=== PATIENT | male | born 1975 | race Hispanic/Latino ===

== ENCOUNTER 2024-11-02 02:54 | Emergency (ER) | payer SELFPAY ==
[~2024-11-02] VITALS: Ht 180.3 cm; Wt 110.7 kg
[2024-11-02 02:56] VITALS: TEMP 98.3
--- NOTE | 2024-11-02 03:02 | EKG ---
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
[2024-11-02 03:27] LABS: IMMATURE GRANULOCYTE ABSOLUTE 0.05 K/uL (0-1); NUCLEATED RED BLOOD CELLS 0.0 % (0.0-0.19); PLATELET COUNT (AUTO) 208 K/uL (130-400); RED BLOOD CELL COUNT(AUTO) 4.67 MIL/uL (4.50-6.20); RED CELL DISTRIBUTION WIDTH 12.8 % (11.0-15.5); WHITE BLOOD COUNT (AUTO) 7.8 K/uL (4.8-10.8)
--- NOTE | 2024-11-02 03:32 | ERN ---
ED Note History of Present Illness Stated Complaint: CHEST PRESSURE ONSET 129 Chief Complaint: Chest Pain Time Seen by MD: 03:01 Dictation: This is a 49-year-old male who presented to the emergency room with complaints of chest pressure that started around 1:30 a.m.. Patient stated that he did not feel well and he took Xanax and he also took nitro sublingual. He stated that the pressure is mostly precordial and mid central chest area without any radiation. He does admit to gastroesophageal reflux. And he also admits to tenderness associated with it as the pain continued he came into the ER for further evaluation. EMS gave 325 mg of aspirin prior to arrival. He denied any nausea vomitings abdominal pain he did admit to smoking marijuana and relaxing. Patient normally takes acid reflux pill daily. He forgot tonight the pain does not have any relation to breathing. Temperature 98.3 pulse 89 respirations 15 blood pressure 117/75 with a pulse oximetry of 98% on room air Chronic comorbidities include diabetes mellitus, hypertension, tobacco abuse and marijuana use disorder. Allergies: Coded Allergies: No Known Drug Allergies (Unverified Allergy, Unknown, 11/02/24) Past Medical History Past Medical History: Diabetes-Type II, Hypertension Surgical History: None Family History: Negative Social History: Smokers, Drugs RN Note Reviewed/Agreed w/PFSH: Yes Review of System Dictation Constitutional: Negative for fever,chills, and weight loss Eyes: Negative for injury, pain,redness, and discharge ENT: Negative for injury,pain or swelling Cardiovascular: Positive for chest pressure, denies palpitations, and edema Respiratory: Negative for shortness of breath, cough, and wheezing, Abdomen/GI: Negative for abdominal pain, nausea, vomiting, diarrhea, and constipation Back: Negative for injury and pain : Negative for injury, bleeding and discharge MS/Extremity: Negative for injury and deformity Skin: Negative for rash, and discoloration Neuro: Negative for headache, weakness, numbness, tingling, and seizure Psych: Negative for suicide ideation, homicidal ideation, and hallucinations Initial Vital Sign VS Vital Signs Date Time Temp Pulse Resp B/P (MAP) Pulse Ox O2 Delivery O2 Flow Rate FiO2 11/02/24 02:56 98.2 89 15 117/75 98 Room Air 0 11/02/24 03:14 21 Physical Exam Dictation General: awake, alert, NAD Head/Face: Normocephalic, atraumatic Eyes: PERRL, EOMI, vision at baseline ENT: oral cavity clear, TMs clear, no signs of infection Neck: Trachea midline, supple, no nuchal rigidity Cardiovascular: RRR, normal S1/S2, No MRGs, no JVD Respiratory: CTAB, no respiratory distress, No rales or wheezes Abdomen: Soft, non-tender, non-distended, normal bowel sounds, no guarding or rebound. Skin: Warm, dry, normal turgor, no rash MS/Extremity: Pulses equal, no cyanosis, neurovascular intact, FROM Neuro: COAx4, GCS 15, strength 5/5, CN 2-12 intact, normal cerebellar exam, normal gait, Psych: Normal behavior, mood, and affect normal Extremities-trace edema without any palpable cords, Homans sign is negative Results (Laboratory/Radiology) Laboratory/Radiology Laboratory Tests Test 11/02/24 03:05 11/02/24 03:10 11/02/24 05:07 White Blood Count 7.8 K/uL (4.8-10.8) Red Blood Count 4.67 MIL/uL (4.50-6.20) Hemoglobin 14.3 g/dL (14.0-18.0) Hematocrit 42.4 % (42-54) Mean Corpuscular Volume 90.8 fL (79-99) Mean Corpuscular Hemoglobin 30.6 pg (27.0-33.0) Mean Corpuscular Hemoglobin Concent 33.7 g/dL (32.0-36.0) Red Cell Distribution Width 12.8 % (11.0-15.5) Platelet Count 208 K/uL (130-400) Mean Platelet Volume 10.9 fL (7.5-10.5) H Immature Granulocyte % (Auto) 0.6 % (0-1) Neutrophils (%) (Auto) 47.5 % (40.0-77.0) Lymphocytes (%) (Auto) 43.2 % (21.0-51.0) Monocytes (%) (Auto) 6.0 % (3.0-13.0) Eosinophils (%) (Auto) 2.2 % (0.0-8.0) Basophils (%) (Auto) 0.5 % (0.0-5.0) Neutrophils # (Auto) 3.7 K/uL (1.8-7.7) Lymphocytes # (Auto) 3.4 K/uL (1.0-4.8) Monocytes # (Auto) 0.5 K/uL (0.1-1.0) Eosinophils # (Auto) 0.17 K/uL (0.00-0.70) Basophils # (Auto) 0.04 K/uL (0.00-0.20) Absolute Immature Granulocyte (auto 0.05 K/uL (0-1) Nucleated Red Blood Cells 0.0 % (0.0-0.19) Sodium Level 133 mmol/L (136-145) L Potassium Level 3.5 mmol/L (3.5-5.1) Chloride Level 97 mmol/L (101-111) L Carbon Dioxide Level 26 mmol/L (21-32) Blood Urea Nitrogen 12 mg/dL (7-18) Creatinine 1.0 mg/dL (0.5-1.3) Glomerular Filtration Rate Calc 92 mL/min (>90) Random Glucose 438 mg/dL (70-105) *H Total Calcium 9.0 mg/dL (8.5-10.1) Total Creatine Kinase 90 U/L (21-232) Troponin I High Sensitivity 4 ng/L (4-75) Urine Color LIGHT-YELLOW (YELLOW) Urine Appearance CLEAR (CLEAR) Urine pH 5.5 (5.0-8.0) Urine Specific [place] 1.034 (1.001-1.031) Urine Protein NEGATIVE mg/dL (NEGATIVE) Urine Glucose (UA) >=1000 mg/dL (NEGATIVE) H Urine Ketones NEGATIVE mg/dL (NEGATIVE) Urine Occult Blood NEGATIVE (NEGATIVE) Urine Nitrate NEGATIVE (NEGATIVE) Urine Bilirubin NEGATIVE mg/dL (NEGATIVE) Urine Urobilinogen 0.2 mg/dL (0.2-1.0) Urine Leukocyte Esterase NEGATIVE Mani/uL Urine RBC 11-25 /HPF (0-1) H Urine WBC 2-5 /HPF (0-1) H Urine WBC Clumps (Auto) FEW /HPF (0-1) Urine Squamous Epithelial Cells RARE /HPF (0-2) Urine Bacteria FEW /HPF (None Seen) Urine Opiates Screen NEGATIVE (NEGATIVE) Urine Barbiturates Screen NEGATIVE (NEGATIVE) Urine Phencyclidine Screen NEGATIVE (NEGATIVE) Urine Amphetamines Screen NEGATIVE (NEGATIVE) Urine Benzodiazepines Screen NEGATIVE (NEGATIVE) Urine Cocaine Screen NEGATIVE (NEGATIVE) Urine Marijuana (THC) Screen POSITIVE (NEGATIVE) H Whole Blood Glucose 300 MG/DL (70-110) H Labs Reviewed?: Yes EKG Comment: Twelve lead EKG done on 11/02/2024 at 2:55 a.m. a.m. showed a heart rate of 86, MT interval 160, QRS duration 94, QT/QTC 358/429 Impression normal sinus rhythm with no acute ST-T elevations. There is a nonspecific intraventricular conduction delay in the inferior leads. Poor progression of the R-wave. EKG rhythm strip shows a normal sinus rhythm with nonspecific ST-T changes. Somewhat of a low voltage in the chest leads. Interpreted by ER MD Dr. Mohan X-RAY Comment: REASON: CHEST PAIN ORDERING PHYSICIAN: LOBITO MOHAN MD PROCEDURE: CXR1VW - CHEST 1VW EXAM: CR Chest, 1 view CLINICAL HISTORY: Chest pain. COMPARISON: Chest radiograph dated 02/19/2012. FINDINGS: Stable 0.3 cm calcified granuloma in the left upper zone. Interval development of a new 0.6 cm calcified granuloma in the left upper lobe. The lungs show no infiltrates or other acute findings. No pleural effusion or pneumothorax. The cardiomediastinal silhouette is within normal limits. No acute osseous abnormality. IMPRESSION: No acute cardiopulmonary process is evident. Stable 0.3 cm calcified granuloma in the left upper zone. Interval development of a new 0.6 cm calcified granuloma in the left upper lobe. /[place] DICTATED BY: KATERINA JACKSON Jr., MD DATE: 11/02/24518 ELECTRONICALLY SIGNED BY: KATERINA JACKSON Jr., MD DATE: 11/02/24518 ED Course ED Course Orders Procedure Category Date Status Time Vital Signs Per CPOE 11/02/24 Transmitted Routine 02:55 Chest 1vw RAD 11/02/24 Resulted 02:55 12 Lead Ekg Tracing- EKG 11/02/24 Complete Technical 02:55 Oxygen By Nc/Pulse Ox CPOE 11/02/24 Transmitted 02:55 Maintain Iv CPOE 11/02/24 Transmitted 02:55 Iv Insertion CPOE 11/02/24 Transmitted 02:55 Cardiac Monitoring CPOE 11/02/24 Transmitted 02:55 Pulse Oximetry With CPOE 11/02/24 Transmitted Vs And Prn 02:55 Cbc With Differential LAB 11/02/24 Complete 02:55 Activity: Br W/Brp CPOE 11/02/24 Transmitted With Assist 02:55 Creatine Kinase, Total LAB 11/02/24 Complete 02:55 Troponin I High LAB 11/02/24 Complete Sensitivity 02:55 Urinalysis Profile LAB 11/02/24 Complete 02:55 Basic Metabolic Panel LAB 11/02/24 Complete 02:55 Drug Screen Urine LAB 11/02/24 Complete 03:10 Morphine 4mg Syg PHA 11/02/24 Complete (Morphine 4mg Syg) 04:00 Ondansetron 4mg Inj PHA 11/02/24 Complete (Zofran 4mg Inj) 04:00 0.9%Nacl 1000ml (Ns PHA 11/02/24 Complete 1000ml) 04:00 Insulin Regular, PHA 11/02/24 Complete Human 3ml (Humulin R 05:00 Insulin Regular, PHA 11/02/24 Complete Human 3ml (Humulin R 05:30 Current Medications Medications (Trade) Dose Ordered Sig/Heidi Route PRN Reason Start Time Stop Time Status Last Admin Dose Admin Insulin Human Regular (humuLIN R 100 UNIT/ML 3ML) 8 unit ONCE ONCE IV 11/02/24 05:30 11/02/24 05:31 DC 11/02/24 05:19 Insulin Human Regular (humuLIN R 100 UNIT/ML 3ML) 12 unit ONCE ONCE IV 11/02/24 05:00 11/02/24 05:10 DC Morphine Sulfate (morPHINE 4MG SYG) 4 mg ONCE ONCE IVP 11/02/24 04:00 11/02/24 04:01 DC 11/02/24 04:03 Ondansetron HCl (zoFRAN 4MG INJ) 4 mg ONCE ONCE IVP 11/02/24 04:00 11/02/24 04:01 DC 11/02/24 04:03 Sodium Chloride 1,000 ml @ 0 mls/hr ONCE ONCE IV 11/02/24 04:00 11/02/24 04:01 DC 11/02/24 04:04 Vital Signs Date Time Temp Pulse Resp B/P (MAP) Pulse Ox O2 Delivery O2 Flow Rate FiO2 11/02/24 04:59 69 18 103/61 97 Room Air* 0 21 11/02/24 03:14 88 18 117/75 97 Room Air* 0 21 11/02/24 02:56 98.2 89 15 117/75 98 Room Air 0 We will perform diagnostic labs, advanced imaging and administer medications according to the patient's complaint. Once the results are available, will review and personally interpreted the labs to rule out any acute life-threa tening emergency the trach require immediate intervention and treatment. I will then re-evaluate the patient after treatment and diagnostic exams have return to determine whether the patient requires any further testing, can safely be discharged home or need further admission to hospital for additional treatment and evaluation. Plan to discharge him to follow up with his primary care physician . Extensive counseling done on Weight loss diet and exercise stressed and education done. Smoking cessation and toxic effects of tobacco and complications associated with worsening lung disease, incidents of lung cancer and other cancers cardiac arrest and . Stop alcohol and resources for withdrawal and abstinence with addiction medicine offered. I have also encouraged him to abstain from marijuana and marijuana products due to multiple system involvements including respiratory complications, neuropsychiatric complications. Regular followups. Patient verbalized full understanding. HEART Score Response (Comments) Value History: Low suspicion (0) 0 EKG: Normal 0 Age: 45-65yrs (+1) 1 Risk Factors: 1-2 risk factors (+1) 1 Initial Troponin: Normal limit (0) 0 HEART Score Risk: Low Risk for MACE (1-3) Total 2 Medical Decision Making MDM Differential diagnosis: Unstable angina, gastroesophageal reflux disease, esophagitis, gastritis, cholecystitis/biliary colic, musculoskeletal pain We will perform diagnostic labs, advanced imaging and administer medications according to the patient's complaint. Once the results are available, will review and personally interpreted the labs to rule out any acute life- threatening emergency the trach require immediate intervention and treatment. I will then re-evaluate the patient after treatment and diagnostic exams have return to determine whether the patient requires any further testing, can safely be discharged home or need further admission to hospital for additional treatment and evaluation. 4:20 a.m. labs reviewed CBC is with a normal limits. BNP 7 shows a sodium of 133 chloride 97 potassium 3.5 glucose is 438. Troponins for, urinalysis is significant for positive glucose positive protein and 10-15 RBCs. No evidence of any infection. UDS is positive for THC Chest x-ray is unremarkable for any acute infiltrate or pleural effusions. There are 2 small calcified granulomas which maybe related to his inhaled recreational drugs Fluid bolus normal saline and subsequently regular insulin IV. Reassess response. I updated the patient on all the labs EKG and chest x-ray findings and also uncontrolled hyperglycemia. 5:42 a.m. patient admits to feeling significantly improved. Rationale: Tests considered and ordered secondary to shared decision making include: Previous outside records reviewed: Old ER visits. Risk of complication and/or morbidity or mortality of patient management: None Medications-Per medication reconciliation Need for hospitalization: Patient does not meet criteria for hospitalization. Need for emergency major/minor surgery: No There are no social concerns with this patient. Prescription drug management Prescriptions will include symptomatic care Patient's prior external medical records from other ER visits were reviewed by me as indicated. Prior testing and results from previous visits were reviewed. Prior tests were taken into account with medical decision making and resource utilization, independent historian/historians were used to obtain complete medical history. I independently interpreted the test that were performed, results were reviewed by me and considered findings on radiology if ordered. Medical management and examination interpretation discussions were had by me with other qualified healthcare professionals as indicated for the patient's care. Problem List Problem List: (1) Atypical chest pain (2) Uncontrolled diabetes mellitus with hyperglycemia (3) Gastroesophageal reflux disease (4) Tobacco abuse (5) Dehydration (6) Obesity (BMI 30.0-34.9) (7) Cannabis use disorder DX & DISP Disposition: Discharge Departure Impression: Primary Impression: Atypical chest pain Additional Impressions: Gastroesophageal reflux disease, Uncontrolled diabetes mellitus with hyperglycemia, Dehydration, Tobacco abuse, Cannabis use disorder, Obesity (BMI 30.0-34.9) Condition: Stable Additional Instructions: Patient and the caregiver have been informed of all the diagnostic tests and the imaging conducted during the today's visit to the emergency room and has verbalized understanding of the results I have personally reviewed and i nterpreted all diagnostic exams performed here in the ER today as well as the vital signs documented by the nursing staff. The patient is now being discharged to home and should follow up with the primary care physician or the specialist as directed by the ER staff. Follow-up with primary care provider in 1 to 2 days. Take medications as directed here in the emergency room. Okay to continue home medications unless otherwise discussed during your visit in the emergency room today. Return to your nearest emergency room if symptoms worsen or if there is no improvement. Call 911 if you need immediate assistance. Take Tylenol or Motrin [id number] as needed and if no contraindications are present. Increase oral hydration. A wound culture or urine culture was ordered here in the emergency room department please follow-up with primary care provider and advise them to get repeat ports from our facility. If you had any Len wrap/splints that were applied here, please do not remove them until you see your primary care or specialty. Referrals: SELF,REFERRAL (PCP) LOBITO MOHAN MD Nov 02, 2024 03:31
[2024-11-02 03:37] LABS: APPEARANCE,URINE CLEAR (CLEAR); GLUCOSE, URINE (UA) >=1000 mg/dL (NEGATIVE); LEUKOCYTE ESTERASE ,URINE NEGATIVE Leu/uL (NEGATIVE); NITRATE,URINE NEGATIVE (NEGATIVE); OCCULT BLOOD,URINE NEGATIVE (NEGATIVE)
[2024-11-02 03:40] LABS: AMPHET/METH SCREEN,URINE NEGATIVE (NEGATIVE); BARBITURATE SCREEN, URINE NEGATIVE (NEGATIVE); CANNABINOID SCREEN,URINE POSITIVE (NEGATIVE); COCAINE SCREEN,URINE NEGATIVE (NEGATIVE)
[2024-11-02 03:41] LABS: ADD UA MICROSCOPIC YES
[2024-11-02 03:42] LABS: SQUAMOUS EPITHELIAL CELL,UR RARE /HPF (0-2); WBC CLUMP FEW /HPF (0-1)
[2024-11-02 03:49] LABS: CREATINE KINASE, TOTAL 90.0 U/L (21-232); CREATININE 1.0 mg/dL (0.5-1.3); GLOMERULAR FILTR. RATE CALC 92.0 mL/min (>90); SODIUM SERUM 133.0 mmol/L (136-145); UREA NITROGEN, BLOOD 12.0 mg/dL (7-18)
[2024-11-02 03:51] LABS: GLUCOSE,RANDOM 438.0 mg/dL (70-105)
[2024-11-02] MEDS: 0.9%NACL 1000ML 1,000 ML IV ONE (04:04)
--- NOTE | 2024-11-02 04:20 | HMCIMG ---
EXAM: CR Chest, 1 view CLINICAL HISTORY: Chest pain. COMPARISON: Chest radiograph dated 02/19/2012. FINDINGS: Stable 0.3 cm calcified granuloma in the left upper zone. Interval development of a new 0.6 cm calcified granuloma in the left upper lobe. The lungs show no infiltrates or other acute findings. No pleural effusion or pneumothorax. The cardiomediastinal silhouette is within normal limits. No acute osseous abnormality. IMPRESSION: No acute cardiopulmonary process is evident. Stable 0.3 cm calcified granuloma in the left upper zone. Interval development of a new 0.6 cm calcified granuloma in the left upper lobe. /[place]
[2024-11-02 06:12] VITALS: BP 103/55; PULSE 68; RESP 18; O2SAT 97
== END 2024-11-02 06:20 | disposition home or self-care (01) ==
LOC: EDH 02:54
DX: R07.89 Other chest pain (principal); K21.9 Gastro-esophageal reflux disease without esophagitis; E11.65 Type 2 diabetes mellitus with hyperglycemia; E86.0 Dehydration; E66.9 Obesity, unspecified; F12.10 Cannabis abuse, uncomplicated; F17.200 Nicotine dependence, unspecified, uncomplicated; I10 Essential (primary) hypertension; Z68.30 Body mass index [BMI] 30.0-30.9, adult
CPT/HCPCS: 99285; 96374; 96375; 71045; 96361; 82550; 84484; 80048; 80305; 85025; 82948 ×2; 36415; 93005; 81001; J1815; J7030; J2405; J2270